=== PATIENT | female | born 2000 ===

== ENCOUNTER 2021-12-12 13:57 | Emergency (ER) | payer OTHER ==
[~2021-12-12] VITALS: Ht 165.1 cm; Wt 59.1 kg
[2021-12-12 15:04] VITALS: TEMP 98
[2021-12-12 16:17] VITALS: BP 99/67; PULSE 80
== END 2021-12-12 16:18 | disposition home or self-care (01) ==
LOC: EDSEX 13:57 → COL.ER 13:57
DX: K92.1 Melena (principal)